=== PATIENT | female | born 2005 | race Caucasian/White ===

== ENCOUNTER 2024-04-08 04:36 | Inpatient (IN) ==
[2024-04-08] MEDS ORDERED: LIDOCAINE 1% LOCAL 20 ML VIAL INFIL PRN (04:45)
[2024-04-08] MEDS ORDERED: LACTATED RINGER'S 1,000 ML IV PRN (04:45)
[2024-04-08] MEDS ORDERED: PENICILLIN GK 6 MU in DEXTROSE 5% 250 ML IV STA (04:45)
--- NOTE | 2024-04-08 04:59 | History & Physical Report ---
Date of Service April 08, 2024 Assessment & Plan (1) Encounter for supervision of normal in multigravida: Plan: Admit to L&D. EFM/toco, labs, IV access. Will give PCN for GBS unknown. She is hoping to be able to get epidural before delivery. Admission and Anticipated Discharge Date Admission Date: April 08, 2024 History of Present Illness Chief Complaint: contractions Primary Care Provider: John Paul Gr MD 18yo @ 37 10/20, contractions picked up at 3am today. No leaking fluid, no vaginal bleeding. + movement. GBS collected yesterday in office -results unknown. Allergies Allergy/AdvReac Type Severity Reaction Status Date / Time No Known Allergies Allergy Verified 04/08/24 04:46 Home Medications Medication Instructions Recorded Confirmed Type vits no.124-ferrous fum 1 tab PO DAILY 04/02/24 04/08/24 History 27 mg iron-folic acid 800 mcg tablet ( Vitamin) Patient History Medical History UTI (urinary tract infection) Chlamydia PTSD (post-traumatic stress disorder) Anxiety and depression Surgical History S/P tonsillectomy and adenoidectomy S/P wisdom tooth extraction Family History (Updated 09/17/23 @ 11:04 by Denise Vang RN) Grandmother (Paternal) Breast cancer Lung cancer Other Diabetes Denies family history of Ovarian cancer Prostate cancer Colorectal cancer Social History (Updated 09/17/23 @ 11:06 by Denise Vang RN) Smoking Status: Never smoker Second Hand Exposure: No; Do You Dip or Chew Tobacco: No; Hx Alcohol Use: No Hx Substance Use: No Preferred Language: Kiswahili Communication Ability: Effective [employer] Required: No Beliefs That Will Affect Care: None marital status: Single marital status details: FELICIA Maradiaga (24) [phone] Current Living Situation: Significant Other Current Living Situation Comment: Patient lives with FOB, child, and no pets. current occupational status: unemployed Feels Safe at Home: Yes Review of Systems All systems reviewed & are unremarkable except as noted in HPI & below Physical Exam Physical Exam: FHT Cat 1 [place] Q 2-3 min SVE 9/100/+1, bulging membranes. Constitutional: WD/WN, vitals as above Respiratory: normal respiratory effort, lungs clear to auscultation no resp iratory distress Cardiovascular: Rate/Rhythm: regular rate and regular rhythm Gastrointestinal (Abdomen): Inspection/Auscultation: abdomen normal to inspection Percussion/Palpation: abdomen soft; abdomen nontender Gravid. No s/s chorio or abruption. Skin: no rashes, warm and dry Psychiatric: A+Ox3, euthymic affect Results & Data Vital Signs (Past 12 Hours) Vital Signs Temp Pulse Resp BP 04/08/24 04:48 36.9 C 79 18 109/68 Coding Level of Care Code None Diagnoses Encounter for supervision of normal in multigravida Z34.80
[2024-04-08] MEDS: OXYTOCIN 30 UNITS/NSS 30 UNITS/500 ML BAG IV PRN ×2 (05:16→07:45)
[2024-04-08 05:22] LABS: Hematocrit (blood only) 29.9 % (37.0-47.0); Hemoglobin 9.6 g/dl (12.0-16.0); Mean Corpuscular Hemoglobin 26.1 pg (25.0-34.0); Mean Corpuscular Hgb Conc 32.1 g/dL (32.0-36.0); Mean Corpuscular Volume 81.3 fL (80.0-100.0); Mean Platelet Volume 10.2 fL (9.4-12.4); Platelet Count 241 K/uL (130-400); RDW Standard Deviation 43.9 fL (36.4-46.3); Red Blood Count 3.68 M/uL (4.20-5.40); White Blood Count 12.62 K/ul (4.8-10.8)
--- NOTE | 2024-04-08 05:24 | Delivery Summary ---
Vaginal Delivery Summary Date of Service April 08, 2024 Vaginal Delivery Summary [facility] Vaginal Delivery Summary: Pre-delivery diagnoses: 18yo @ 37 2/, spontaneous labor, GBS unknown Post-delivery diagnoses: same Procedure: spontaneous vaginal delivery Surgeon: Afshan Ferreira DO Complications: none Findings: Viable male . Apgars: 8/9 . Weight pending, please see nursery records Estimated QBL blood loss: 50cc Description of delivery: The patient progressed to complete with epidural anesthesia. She then began to push. She spontaneously vaginally delivered a viable from the cephalic presentation. The head delivered in TRINI position. The anterior shoulder and arm delivered, followed by the posterior shoulder, followed b A segment was retained for cord gases. Cord blood was obtained. The placenta was delivered spontaneously intact with a 3-vessel cord. The uterus and vagina were swept of clots and debris. IV pitocin was given. The uterus became firm. The cervix, vagina, and perineum were inspected and no lacerations were noted. Excellent hemostasis was observed. The mother and baby are recovering in stable and good condition in the room. Sponge and instrument counts were correct x 2. Afshan Ferreira DO [facility] Vaginal Delivery Charge Vaginal Delivery Codes: 69160 global code for the antepartum, delivery, and post- Delivery Type Details: [facility]
[2024-04-08] MEDS ORDERED: BENZOCAINE 20% SPRY 85 APPLN/85 GM CAN EXT PRN (05:39)
[2024-04-08] MEDS ORDERED: HYDROCORTISONE ACETATE 25 MG SUPP PR PRN (05:39)
[2024-04-08] MEDS ORDERED: oxyCODONE/ACETAMINOPHEN 5mg/325mg TAB PO PRN (05:39)
[2024-04-08] MEDS ORDERED: bisacodyL 10 MG SUPP PR PRN (05:39)
[2024-04-08] MEDS: DIPHTHER/TETAN/PERTUS Vaccine (Tdap, Adol/Adult) 0.5mL IM ONE (05:52)
[2024-04-08] MEDS: IBUPROFEN 600 MG TAB PO PRN (06:07)
[2024-04-08] MEDS ORDERED: PENICILLIN GK 3 MU in DEXTROSE 5% 100 ML IV PRN (07:45)
[2024-04-08] MEDS: METHYLERGONOVINE MALEATE 0.2 MG/ML AMP IM STA (07:45)
[2024-04-08] MEDS: LACTATED RINGER'S 1,000 ML IV SCH (07:50)
--- NOTE | 2024-04-08 07:51 | Obstetrical Progress Note ---
Date of Service April 08, 2024 Assessment & Plan Admission and Anticipated Discharge Date Admission Date: April 08, 2024 Subjective Called to patient room for bleeding - has approx 1000cc blood loss - is awake and talking. Had been up in the shower, clots came out. I performed exam - pulled approx 100cc clots from lower uterine segment/cervix. Patient stated she felt immediate relief with this - uterus firm. Will give methergine, TXA, IV fluids bolus, stat H/H. Results & Data Vital Signs (Past 12 Hours) Vital Signs Temp Pulse Resp BP O2 Del Method 04/08/24 07:48 59 L 80/50 L 04/08/24 07:46 61 74/48 L 04/08/24 07:43 81 96/53 L 04/08/24 07:20 77 20 101/57 L 04/08/24 07:20 77 101/57 L 04/08/24 07:05 74 102/59 L 04/08/24 06:50 36.9 C 66 18 108/63 04/08/24 06:50 66 108/63 04/08/24 06:35 61 113/69 04/08/24 06:20 18 04/08/24 06:20 73 110/68 04/08/24 06:05 18 04/08/24 06:05 79 110/55 L 04/08/24 05:50 63 18 105/60 04/08/24 05:50 63 105/60 04/08/24 05:36 69 107/67 04/08/24 05:35 18 04/08/24 05:20 18 04/08/24 04:51 36.9 C 18 Room Air 04/08/24 04:48 36.9 C 79 18 109/68 PG Care Time/CCT Total # of Minutes Spent Total Time Spent with Patient: Total time spent is greater than 50% in coordination of care (as documented) at patient's floor/unit and/or counseling patient: Coding Level of Care Code None
[2024-04-08] MEDS: TRANEXAMIC ACID / 0.7% NACL 1,000 MG/100 ML BAG IV STA (07:56)
[2024-04-08 08:16] LABS: Hematocrit (blood only) 26.4 % (37.0-47.0); Hemoglobin 8.5 g/dl (12.0-16.0)
[2024-04-08] MEDS: OXYTOCIN 30 UNITS/LR 1,003 ML IV SCH (08:35)
[2024-04-08] MEDS: PRENATAL VITAMIN 1 TAB PO SCH (10:10)
[2024-04-08] MEDS: LACTATED RINGER'S 250 ML IV ONE (10:10)
[2024-04-08] MEDS: DOCUSATE SODIUM 100 MG CAP PO SCH (10:10)
[2024-04-08] MEDS: TRANEXAMIC ACID / 0.7% NACL 1000MG/100ML BAG IV ONE (10:11)
[2024-04-08] MEDS: METHYLERGONOVINE MALEATE 0.2 MG/ML AMP ONE (10:11)
[2024-04-08 12:27] LABS: Hematocrit (blood only) 28.5 % (37.0-47.0); Hemoglobin 9.2 g/dl (12.0-16.0); Mean Corpuscular Hemoglobin 26.4 pg (25.0-34.0); Mean Corpuscular Hgb Conc 32.3 g/dL (32.0-36.0); Mean Corpuscular Volume 81.7 fL (80.0-100.0); Mean Platelet Volume 10.5 fL (9.4-12.4); Platelet Count 232 K/uL (130-400); RDW Coefficient of Variation 15.1 % (11.5-14.5); RDW Standard Deviation 44.2 fL (36.4-46.3); Red Blood Count 3.49 M/uL (4.20-5.40); White Blood Count 17.37 K/ul (4.8-10.8)
[2024-04-08] MEDS: ACETAMINOPHEN 325 MG TAB PO PRN (19:03)
[2024-04-09 07:10] LABS: Hematocrit (blood only) 24.6 % (37.0-47.0); Hemoglobin 7.8 g/dl (12.0-16.0)
--- NOTE | 2024-04-09 07:35 | Obstetrical Progress Note ---
Date of Service April 09, 2024 Assessment & Plan (1) Encounter for care and examination after delivery: 18 yo PP1 from c/b PPH, doing well -Meeting all pp milestones -O+/rubella immune/ -H/H 7.8 which seems appropriate given pph. Pt asymptomatic, will make sure on iron. Continue care, plan dc home tomorrow due to latch issues Subjective Ambulation: ambulating normally Voiding: no voiding problems Passing Gas:: Yes Diet Tolerance:: regular diet Lochia:: Small Feeding Type:: breast feeding Pain well managed with medication Review of Systems Denies fevers, chills, n/v, CURTIS, CP, SOB Physical Exam Constitutional WD/WN, vitals as above no acute distress Respiratory normal respiratory effort, lungs clear to auscultation Cardiovascular RRR, no murmur, no edema Gastrointestinal (Abdomen) Percussion/Palpation: abdomen soft; abdomen nontender fundus firm at umbilicus and NT Musculoskeletal BLE symmetric, nonerythematous, nontender Results & Data Vital Signs (Past 12 Hours) Vital Signs Temp Pulse Resp BP Pulse Ox O2 Del Method 04/09/24 05:28 97/64 L 04/09/24 04:15 97.5 F L 78 18 88/57 L 99 Room Air 04/08/24 23:14 97.5 F L 77 18 102/63 97 Room Air 04/08/24 19:45 97.5 F L 74 18 100/65 98 Room Air
[2024-04-09] MEDS: FERROUS SULFATE 325 MG TAB PO SCH (08:34)
[2024-04-09] MEDS: bisacodyL 5 MG TABEC PO SCH (19:44)
--- NOTE | 2024-04-10 06:48 | Obstetrical Progress Note ---
Date of Service April 10, 2024 Assessment & Plan (1) Encounter for care and examination after delivery: 18 yo PP2 from c/b PPH, doing well -Meeting all pp milestones -O+/rubella immune/ -Stable for dc home Subjective Ambulation: ambulating normally Voiding: no voiding problems Passing Gas:: Yes Diet Tolerance:: regular diet Lochia:: Small Feeding Type:: breast feeding (pumping and spoon feeding) Pain well managed with medication Review of Systems Denies fevers, chills, n/v, CURTIS, CP, SOB Physical Exam Constitutional WD/WN, vitals as above no acute distress Respiratory normal respiratory effort, lungs clear to auscultation Cardiovascular RRR, no murmur, no edema Gastrointestinal (Abdomen) Percussion/Palpation: abdomen soft; abdomen nontender fundus firm at umbilicus and NT Musculoskeletal BLE symmetric, nonerythematous, nontender Results & Data Vital Signs (Past 12 Hours) Vital Signs Temp Pulse Resp BP Pulse Ox O2 Del Method 04/10/24 00:15 98.2 F 84 16 109/68 99 Room Air 04/09/24 19:45 97.7 F 94 H 16 106/67 98 Room Air
== END 2024-04-10 11:35 | disposition home or self-care (01) | DRG 806 ==
LOC: OPB 04:36 → 4S1 04:39 → 4E2 13:15